=== PATIENT | female | born 1980 | race Caucasian/White ===

== ENCOUNTER 2023-01-13 12:31 | Emergency (ER) | payer SELFPAY ==
[2023-01-13] MEDS ORDERED: NA CHLORIDE 0.9% 500 ML ONE (13:06)
[2023-01-13] MEDS ORDERED: KETOROLAC 30 MG/ML INJ ONE (13:06)
[2023-01-13] MEDS ORDERED: METOCLOPRAMIDE 10 MG/2mL INJ ONE (13:07)
[2023-01-13] MEDS ORDERED: chlordiazePOXIDE HCl 25 MG CAP ONE (13:17)
[2023-01-13 13:29] LABS: Hematocrit 41.2 % (36.0-45.0); Lymphocytes % 24.9 % (15.3-44.8); MCV 97.6 fL (80-100); MPV 7.1 fL (7.6-11.3); RBC Red Blood Cell Count 4.23 M/uL (3.86-4.86)
[2023-01-13 13:57] LABS: Albumin 3.8 g/dL (3.4-5.0); Bilirubin Total 0.6 mg/dL (0.2-1.0); Magnesium 2.1 mg/dL (1.6-2.4); Potassium 3.6 mEq/L (3.5-5.1); Protein, Total 7.4 g/dL (6.4-8.2)
--- NOTE | 2023-01-13 14:04 | ER ---
Nurse's Notes [facility] Name: Natalya Tello Age: 42 yrs Sex: Female : 1980 Arrival Date: 01/13/2023 Time: 12:31 Bed 17 Private MD: Diagnosis: Alcohol abuse Presentation: 01/13 12:34 Chief complaint: EMS states: toned out for anxiety, pt states she is scared because she 3 is a high risk for seizures due to alcohol withdrawal. Recently at [facility] but checked herself out and wants to go back for treatment. Coronavirus screen: Vaccine status: Patient reports receiving the 2nd dose of the covid vaccine. Ebola Screen: No symptoms or risks identified at this time. Initial Sepsis Screen: Does the patient meet any 2 criteria? No. Patient's initial sepsis screen is negative. Does the patient have a suspected source of infection? No. Patient's initial sepsis screen is negative. Risk Assessment: Do you want to hurt yourself or someone else? Patient reports no desire to harm self or others. Onset of symptoms was January 13, 2023. 12:34 Method Of Arrival: EMS: [place] [id number] 12:34 Acuity: OSWALDO 2 eh3 Triage Assessment: 12:34 General: Appears distressed, Behavior is cooperative, anxious, crying. Pain: Denies 3 pain. Neuro: Level of Consciousness is awake, alert, obeys commands, Oriented to person, place, time, situation, Speech is normal. Cardiovascular: Capillary refill < 3 seconds Patient's skin is warm and dry. Rhythm is sinus tachycardia. Respiratory: Airway is patent Respiratory effort is even, unlabored, Respiratory pattern is regular, symmetrical. GI: Abdomen is round non-distended. Derm: Skin is pink, warm \T\ dry. Musculoskeletal: Circulation, motion, and sensation intact. Historical: - Allergies: 12:41 Amoxicillin; eh3 - Home Meds: 12:41 None [Active]; eh3 - PMHx: 12:41 Cervical cancer; eh3 - Immunization history:: Adult Immunizations unknown. - Social history:: Smoking status: Patient reports the use of cigarette tobacco products, smokes one pack cigarettes per day. Patient uses alcohol, on a daily basis. patient/guardian reports chronic longstanding heavy alcohol consumption. Screenin:43 [facility] ED Fall Risk Assessment (Adult) Score/Fall Risk Level 0 - 2 = Low Risk. Abuse eh3 screen: Denies threats or abuse. Denies injuries from another. Nutritional screening: No deficits noted. Tuberculosis screening: No symptoms or risk factors identified. Assessment: 12:43 Reassessment: No changes from previously documented assessment. See triage assessment. eh3 13:00 Reassessment: Patient appears in no apparent distress at this time. Patient and/or eh3 family updated on plan of care and expected duration. Pain level reassessed. Patient is alert, oriented x 3, equal unlabored respirations, skin warm/dry/pink. 13:30 Reassessment: Patient appears in no apparent distress at this time. Patient and/or eh3 family updated on plan of care and expected duration. Pain level reassessed. Patient is alert, oriented x 3, equal unlabored respirations, skin warm/dry/pink. 14:00 Reassessment: Patient appears in no apparent distress at this time. Patient and/or eh3 family updated on plan of care and expected duration. Pain level reassessed. Patient is alert, oriented x 3, equal unlabored respirations, skin warm/dry/pink. Called [facility], nurse [facility] is unable to accept pt due to high blood pressure and pt's stated seizure risk. Provided pt with Community Resources List, pt agreed to contact [facility]. Vital Signs: 12:34 Pulse 106; Resp 20; Temp 98.5(O); Pulse Ox 98% ; Weight 61.23 kg; Height 5 ft. 4 in. ; eh3 13:00 BP 143 / 109; Pulse 101; Resp 18; Pulse Ox 100% on R/A; eh3 13:30 BP 118 / 81; Pulse 95; Resp 19; Pulse Ox 97% on R/A; eh3 14:00 BP 106 / 73; Pulse 94; Resp 20; Pulse Ox 95% on R/A; eh3 12:34 Body Mass Index 23.17 (61.23 kg, 162.56 cm) 3 ED Course: 12:34 Patient arrived in ED. bs3 12:34 Eduardo Vázquez MD is Attending Physician. bs3 12:34 Arm band placed on. eh3 12:38 Nemo Neri, AMNA is Primary Nurse. 3 12:41 Triage completed. 3 12:43 Patient has correct armband on for positive identification. Bed in low position. Call eh3 light in reach. Side rails up X2. Seizure precautions initiated. Client placed on continuous cardiac and pulse oximetry monitoring. NIBP monitoring applied. Door closed. Noise minimized. Lights dimmed. Warm blanket given. 12:55 Inserted saline lock: 20 gauge in left antecubital area, using aseptic technique. Blood eh3 collected. Completed by college staff. 14:05 No provider procedures requiring assistance completed. IV discontinued, intact, eh3 bleeding controlled, No redness/swelling at site. Pressure dressing applied. Administered Medications: 13:00 Drug: NS 0.9% IV 500 ml Route: IV; Rate: 1 bolus; Site: left antecubital; eh3 14:00 Follow up: IV Status: Completed infusion; IV Intake: 500ml eh3 13:00 Drug: metoCLOPramide IVP 10 mg Route: IVP; Site: left antecubital; eh3 14:00 Follow up: Response: No adverse reaction eh3 13:00 Drug: Ketorolac IVP 15 mg Route: IVP; Site: left antecubital; eh3 14:00 Follow up: Response: No adverse reaction eh3 13:00 Drug: Librium - chlordiazePOXIDE PO 50 mg Route: PO; eh3 14:00 Follow up: Response: No adverse reaction eh3 Medication: 14:05 VIS not applicable for this client. eh3 Intake: 14:00 IV: 500ml; Total: 500ml. eh3 Outcome: 14:03 Discharge ordered by . bs3 14:05 Discharged to home via wheelchair. eh3 14:05 Condition: stable 14:05 Discharge instructions given to patient, Instructed on discharge instructions, follow up and referral plans. Demonstrated understanding of instructions, follow-up care. 14:53 Patient left the ED. eh3 Signatures: Nemo Neri RN RN eh3 Eduardo Vázquez MD MD bs3
--- NOTE | 2023-01-13 14:04 | EDPHYS ---
Physician Documentation [facility] Name: Natalya Tello Age: 42 yrs Sex: Female : 1980 Arrival Date: 01/13/2023 Time: 12:31 Bed 17 Private MD: ED Physician Eduardo Vázquez HPI: 01/13 12:39 This 42 yrs old Female presents to ER via Unassigned with complaints of bs3 Anxiety, Alcohol Withdrawal. 12:39 42-year-old female history of polysubstance abuse presents after being in the process bs3 of checking in at [facility] for drug rehab however she got anxious and was concerned about her liver she has not followed up with anyone recently she notes using meth today and alcohol just prior to going to [facility] she states that she feels generally unwell for EMS her vital signs were notable for slight tachycardia otherwise no complaint. Historical: - Allergies: 12:41 Amoxicillin; eh3 - Home Meds: 12:41 None [Active]; eh3 - PMHx: 12:41 Cervical cancer; eh3 - Immunization history:: Adult Immunizations unknown. - Social history:: Smoking status: Patient reports the use of cigarette tobacco products, smokes one pack cigarettes per day. Patient uses alcohol, on a daily basis. patient/guardian reports chronic longstanding heavy alcohol consumption. ROS: 12:39 Constitutional: Negative for fever, chills bs3 12:39 All other systems are negative. Exam: 12:39 Constitutional: This is a well developed, well nourished patient who is awake, alert, bs3 and in no acute distress. Head/Face: Normocephalic, atraumatic. Eyes: Pupils equal round and reactive to light, extra-ocular motions intact. Lids and lashes normal. ENT: mmm, no posterior phyarngeal erythema Chest/axilla: Normal chest wall appearance and motion. Nontender with no deformity. No lesions are appreciated. Cardiovascular: Regular rate and rhythm with a normal S1 and S2. symmetric pulses in upper extremities Respiratory: Lungs have equal breath sounds bilaterally, clear to auscultation, no respiratory distress Abdomen/GI: Soft, non-tender, no rebound or guarding MS/ Extremity: Pulses equal, no cyanosis. Neurovascular intact. Full, normal range of motion. Neuro: Awake and alert, GCS 15, oriented to person, place, time, and situation. Cranial nerves II-XII grossly intact. Motor strength 5/5 in all extremities. Sensory grossly intact. Psych: Awake, alert, with orientation to person, place and time. Behavior, mood, and affect are within normal limits. Vital Signs: 12:34 Pulse 106; Resp 20; Temp 98.5(O); Pulse Ox 98% ; Weight 61.23 kg; Height 5 ft. 4 in. ; eh3 13:00 BP 143 / 109; Pulse 101; Resp 18; Pulse Ox 100% on R/A; eh3 13:30 BP 118 / 81; Pulse 95; Resp 19; Pulse Ox 97% on R/A; eh3 14:00 BP 106 / 73; Pulse 94; Resp 20; Pulse Ox 95% on R/A; eh3 12:34 Body Mass Index 23.17 (61.23 kg, 162.56 cm) eh3 MDM: 12:34 Patient medically screened. bs3 12:39 Data reviewed: vital signs, nurses notes. ED course: 42-year-old with anxiety and bs3 multiple complaints in the setting of polysubstance use we will check labs given no recent lab work we will do serial exams we will give Librium to prevent alcohol withdrawal she is not currently in withdrawal. 13:31 ED course: Sinus tachycardia at [address] elevation or depressions QTc 472 as bs3 interpreted by myself. 14:02 ED course: Labs negative for acute pathology advised to follow-up for drug rehab. 3 01/13 12:34 Order name: CBC with Diff; Complete Time: 13:47 3 01/13 12:34 Order name: Comprehensive Metabolic Panel; Complete Time: 14:02 bs3 01/13 12:34 Order name: Magnesium; Complete Time: 14:02 3 01/13 12:35 Order name: EKG - Nurse/Tech; Complete Time: 13:20 bs3 Administered Medications: 13:00 Drug: NS 0.9% IV 500 ml Route: IV; Rate: 1 bolus; Site: left antecubital; 3 14:00 Follow up: IV Status: Completed infusion; IV Intake: 500ml 3 13:00 Drug: metoCLOPramide IVP 10 mg Route: IVP; Site: left antecubital; 3 14:00 Follow up: Response: No adverse reaction eh3 13:00 Drug: Ketorolac IVP 15 mg Route: IVP; Site: left antecubital; eh3 14:00 Follow up: Response: No adverse reaction eh3 13:00 Drug: Librium - chlordiazePOXIDE PO 50 mg Route: PO; eh3 14:00 Follow up: Response: No adverse reaction eh3 Disposition Summary: 01/13/23 14:03 Discharge Ordered Location: Home bs3 Problem: new bs3 Symptoms: have improved bs3 Condition: Stable bs3 Diagnosis - Alcohol abuse bs3 Followup: bs3 - With: Private Physician - When: 1 week - Reason: Re-evaluation by your physician Discharge Instructions: - Discharge Summary Sheet bs3 - Alcohol Use Disorder bs3 - Methamphetamines Use Disorder bs3 - Illegal Drug Use Information, Adult bs3 Forms: - Medication Reconciliation Form bs3 - Thank You Letter bs3 - Antibiotic Education bs3 - Prescription Opioid Use bs3 Signatures: Dispatcher [employer] Nemo Lozada RN RN 3 Eduardo Vázquez MD MD bs3
[2023-01-13 15:26] VITALS: TEMP 98.5
[2023-01-13 15:31] VITALS: BP 118/81; O2SAT 97
--- NOTE | 2023-01-14 13:56 | EKG ---
Test Date: 2023-01-13 Test Time: 13:15:45 Locker Operator: NIMESH MEASUREMENT RESULTS: Intervals: Rate: 107 IN: 138 QRSD: 80 QT: 354 QTc: 472 Halliday: P: 65 IN: 138 QRS: 63 T: 56 INTERPRETIVE STATEMENTS: Sinus tachycardia Otherwise normal ECG No previous ECG available for comparison Electronically Signed On 01-14-23 13:55:17 CDT by Augie Newell
== END 2023-01-13 14:53 | disposition home or self-care (01) ==
LOC: ER 12:31
DX: F10.10 Alcohol abuse, uncomplicated (principal)
CPT/HCPCS: 36415; 80053; 83735; 85025; 93005; 96361; 96374; 96375; 99284; J2765; J7040